=== PATIENT | male | born 1970 | race Two or more races ===

== ENCOUNTER 2017-01-01 01:05 | Emergency (ER) | payer SELFPAY ==
[2017-01-01 01:46] LABS: % EOSINOPHILS 2.5 % (0.0-5.0); % LYMPHOCYTES 40.2 % (20.0-50.0); % MONOCYTES 6.8 % (2.0-10.0); % NEUTROPHILS 49.5 % (40.0-80.0); HEMATOCRIT 44.4 % (39.0-49.0); HEMOGLOBIN 15.1 gm/dL (13.2-17.3); MEAN CELL VOLUME 100.1 fl (80-99); MEAN CORPUSCULAR HEMOGLOBIN 34.1 pg (26.0-30.0); MEAN CORPUSCULAR HGB CONC 34.1 pg (28.0-36.0); MEAN PLATELET VOLUME 9.5 fl; NEUTROPHILE ABSOLUTE 2.4 Th/cmm (1.8-8.0); PLATELET COUNT 143 Th/cmm (150-400); RED BLOOD COUNT 4.43 Mil/cmm (4.30-5.70); RED CELL DISTRIBUTION WIDTH 12.7 % (11.5-20.0); WHITE BLOOD COUNT 4.6 Th/cmm (4.8-10.8)
[2017-01-01 01:58] LABS: ALB/GLOB RATIO 1.4 (1.0-1.8); ALKALINE PHOSPHATASE 66 U/L (34-104); ANION GAP 12.9 (7.0-16.0); BILIRUBIN,TOTAL 0.3 mg/dL (0.3-1.0); BUN - UREA NITROGEN 11 mg/dL (7-25); CALCIUM SERUM 9.1 mg/dL (8.6-10.3); CARBON DIOXIDE 22.7 mEq/L (21.0-31.0); CHLORIDE 111 mEq/L (98-107); CREATININE - SERUM 0.5 mg/dL (0.7-1.3); GLUCOSE 126 mg/dL (70-105); POTASSIUM SERUM 3.6 mEq/L (3.5-5.1); SGOT 28 U/L (13-39); SGPT/ALT 23 U/L (7-52); SODIUM SERUM 143 mEq/L (136-145)
--- NOTE | 2017-01-01 06:46 | ED Physician Chart ---
Chief Complaint/HPI - Patient Information Date Seen:: 01/01/17 Time Seen:: 06:20 Chief Complaint:: altered LOC History of Present Illness:: found sleeping on sidewalk. States he was drinking tequila. Only medical complaint is left shoulder and left elbow pain and weakness (occurred spontaneously without trauma) which he has had since September 2017. Homeless. Allergies:: Allergies Allergy/AdvReac Type Severity Reaction Status Date / Time No Known Allergies Allergy Verified 01/01/17 01:17 Vitals:: Vital Signs - 8 hr 01/01/17 01/01/17 01:10 03:00 Temp 98.2 F 97.8 F HR 73 68 RR 16 17 BP 117/85 122/60 O2 Sat % 97 96 Historian:: Patient Review:: Nurse's Note Reviewed Review of Systems - Review of Systems General/Constitutional: No fever, No chills Skin: No skin lesions Head: No headache Eyes: No loss of vision ENT: No earache Neck: No neck pain, No swelling Cardio Vascular: No chest pain, No palpitations Pulmonary: No SOB, No cough GI: No nausea, No vomiting G/U: No dysuria, No hematuria Musculoskeletal: Bone or joint pain Psychiatric: No prior psych history, No depression Hematopoietic: No bruising Allergic/Immuno: No urticaria Neurological: No syncope Past Medical History - Past Medical History Past Medical History: HTN Family History: None Social History: Non Smoker, Alcohol Surgical History: None Psychiatricy History: None Medication: None Family Medical History - Family Member Mother History Unknown: Yes Physical Exam - Physical Examination General/Constitutional: Well-developed, well-nourished, Alert, No distress Head: Atraumatic Eyes: Lids, conjuctiva normal, PERRL Skin: Nl inspection, No rash, No skin lesions, No ecchymosis, Well hydrated, No lymphadenopathy ENMT: External ears, nose nl, TM canals nl, Nasal exam nl Other ENMT comments:: upper teeth absent Neck: No nuchal rigidity Respiratory: Clear to Auscultation, No Wheeze/Rhonchi/Rales Cardio Vascular: RRR GI: No tenderness/rebounding/guarding, No organomegaly, No hernia, Normal BS's : No CVA tenderness Other Extremities comments:: left elbow: no tenderness or deformity; observed to use left elbow normally. Left shoulder: mild tenderness over humeral head; no deformity or redness. Neuro/Psych: Alert/oriented Misc: Normal back Labs/Radiology/EKG Results - Lab Results Results: Laboratory Tests 01/01/17 01/01/17 01:35 01:35 WBC 4.6 L RBC 4.43 Hgb 15.1 Hct 44.4 MCV 100.1 H MCH 34.1 H MCHC Differential 34.1 RDW 12.7 Plt Count 143 L MPV 9.5 Neutrophils % 49.5 Lymphocytes % 40.2 Monocytes % 6.8 Eosinophils % 2.5 Basophils % 1.0 Sodium 143 Potassium 3.6 Chloride 111 H Carbon Dioxide 22.7 Anion Gap 12.9 BUN 11 Creatinine 0.5 L Est GFR ( Amer) > 60.0 Est GFR (Non-Af Amer) > 60.0 BUN/Creatinine Ratio 22.0 Glucose 126 H Calcium 9.1 Total Bilirubin 0.3 AST 28 ALT 23 Alkaline Phosphatase 66 Total Protein 7.3 Albumin 4.2 Globulin 3.1 Albumin/Globulin Ratio 1.4 ED Septic Shock - . Is Septic Shock (SBP<90, OR Lactate>4 mmol\L) present?: No - <6hrs of presentation: Vital Signs: Vital Signs - 8 hr 01/01/17 01/01/17 01:10 03:00 Temp 98.2 F 97.8 F HR 73 68 RR 16 17 BP 117/85 122/60 O2 Sat % 97 96 Reassessment (Disposition) - Reassessment Reassessment:: at 0650 normally alert; normally ambulatory Reassessment Condition:: Improved - Diagnosis Diagnosis:: alcohol intoxication - Aftercare/Follow up Instructions Aftercare/Follow-Up Instructions:: Refer to Discharge Instructions - Patient Disposition Discharge/Transfer:: Home Condition at Disposition:: Stable, Improved ED Discharge Plan - Patient Disposition Instructions: Alcohol Intoxication, [id number] Additional Instructions: DISCHARGE: Patient given D/C instructions and instructed to stop drinking alcoholic beverages. Patient verbalized understanding. MD discussed with patient the results and treatment provided. Ambulatory with steady gait for discharge to home. Patient in stable condition, ID band removed. Patient educated to avoid drinking alcoholic beverages. All belongings sent with patient.
== END 2017-01-01 06:45 | disposition home or self-care (01) ==
LOC: EDBD 01:05 → ER 01:05
DX: F10.129 Alcohol abuse with intoxication, unspecified (principal); I10 Essential (primary) hypertension; Z59.0 Homelessness
CPT/HCPCS: 36415-UA; 80053-TC; 85025-TC; Z7502